=== PATIENT | female | born 1955 | race Caucasian/White ===

== ENCOUNTER 2024-01-30 14:37 | Emergency (ER) | payer MEDICARE, OTHER ==
[~2024-01-30] VITALS: Ht 152.4 cm; Wt 59.0 kg
[2024-01-30 14:37] VITALS: BP_SYST 128; PULSE 87; RESP 20; TEMP 97.6; O2SAT 97
[2024-01-30 15:14] LABS: BASOPHILS % (AUTO) 0.4 % (0.0-2.0); EOSINOPHILS % (AUTO) 0.3 % (0.0-4.0); HEMATOCRIT 34.1 % (36-48); HEMOGLOBIN 10.7 g/dL (12.0-16.0); LYMPHOCYTES # (AUTO) 1.5 K/uL (1.0-5.5); LYMPHOCYTES % (AUTO) 18.1 % (20.5-51.5); MEAN CORPUSCULAR HEMOGLOBIN 19 pg (27-31); MEAN CORPUSCULAR HGB CONC 32 % (32-36); MEAN CORPUSCULAR VOLUME 59 fL (79.0-98.0); MONOCYTES # (AUTO) 0.5 K/uL (0.0-1.0); MONOCYTES % (AUTO) 5.5 % (1.7-9.3); NEUTROPHILS # (AUTO) 6.5 K/uL (1.8-7.7); NEUTROPHILS % (AUTO) 75.7 % (40.0-70.0); RED CELL DISTRIBUTION WIDTH 20.4 % (9.0-15.0); WHITE BLOOD COUNT (AUTO) 8.6 K/uL (4.8-10.8)
[2024-01-30 15:23] LABS: PROTHROMBIN TIME 10.6 SECS (9.5-12.5)
[2024-01-30 15:30] LABS: PLATELET COUNT (AUTO) 260 K/uL (130-430)
[2024-01-30 15:31] LABS: ANISOCYTOSIS 2+; HYPOCHROMASIA 1+; OVALOCYTES MODERATE
[2024-01-30 15:36] LABS: ALANINE AMINOTRANSFERASE 19 U/L (12-78); ALBUMIN 4.2 g/dL (3.4-4.8); ANION GAP 14 (5-15); ASPARTATE AMINOTRANSFERASE 19 U/L (10-37); BILIRUBIN,DIRECT 0.1 mg/dL (0.0-0.3); CARBON DIOXIDE 23 mmol/L (23-29); CHLORIDE 106 mmol/L (98-107); CREATINE KINASE, TOTAL 64 U/L (26-192); CREATININE 1.01 mg/dL (0.55-1.30); GFR AFRICAN AMERICAN 70 mL/min (>90); GLUCOSE 178 mg/dL (74-106); SALICYLATE 4 mg/dL (3-30); SODIUM SERUM 143 mmol/L (136-145); TOTAL BILIRUBIN 0.5 mg/dL (0.0-1.0); TOTAL PROTEIN, SERUM 7.7 g/dL (6.4-8.3); UREA NITROGEN, BLOOD 12 mg/dL (8-21)
[2024-01-30 15:40] LABS: GFR NON AFRICAN-AMERICAN 58 mL/min (>90)
[2024-01-30 15:41] LABS: ACETAMINOPHEN < 1 ug/mL (1-30); ALCOHOL, BLOOD < 3 mg/dL (<10)
[2024-01-30 15:42] LABS: POTASSIUM 2.7 mmol/L (3.5-5.1)
[2024-01-30 15:51] LABS: ACETONE, SERUM NEGATIVE (NEGATIVE)
[2024-01-30] MEDS: POTASSIUM CHLORIDE 20 MEQ/PKT PACKET PO ONE ×2 (17:21)
[2024-01-30 17:46] VITALS: BP_SYST 122; PULSE 79; RESP 18; TEMP 98; O2SAT 97
== END 2024-01-30 17:46 | disposition home or self-care (01) ==
LOC: SED 14:37
DX: R41.82 Altered mental status, unspecified (principal); E72.20 Disorder of urea cycle metabolism, unspecified; E87.6 Hypokalemia; I10 Essential (primary) hypertension; M79.7 Fibromyalgia; Z98.890 Other specified postprocedural states
CPT/HCPCS: 99285; 70450; 71045; 80076; 80048; 82009; 82140; 82550; 85025; 85610; 85730; 84484; 36415; 93005; 82948; 83605; 82397; G0482; G0480; G0481